=== PATIENT | female | born 1955 | race African-American/Black ===

== ENCOUNTER 2022-03-08 09:20 | Inpatient (IN) | payer MEDICARE, OTHER ==
[2022-03-08 10:36] LABS: INR-International Normal Ratio 1.4; Prothrombin Time 17.1 sec (12.0-14.7)
[2022-03-08 10:39] LABS: #Lymphocytes 1.7 thou/uL (1.20-3.40); #Monocytes 0.8 thou/uL (0.11-0.59); #Neutrophils 9.5 thou/uL (1.40-6.50); %Basophils 0.1 % (0.0-1.0); %Eosinophils 0.3 % (0.0-10.0); %Lymphocytes 13.8 % (21.0-51.0); %Monocytes 6.5 % (0.0-10.0); %Neutrophils 79.3 % (42.0-75.0); Band 15 % (5-11); Eosinophils 1 % (0-10); Hemoglobin 13.6 g/dL (12.0-16.0); Lymphocytes 13 % (21-51); MDiff Complete? YES; Mean Corpuscular HGB CONC 30.1 g/dL (32.0-36.0); Mean Corpuscular Hemoglobin 25.8 pg (27.0-31.0); Mean Corpuscular Volume 85.7 fL (78.0-98.0); Mean Platelet Volume 10.7 fL (7.4-10.4); Monocytes 8 % (0-10); Neutrophil 63 % (42-75); Platelet Count 111 thou/uL (130-400); Platelet Morphology Comment Appears Decreased; RBC Distribution Width 15.7 % (11.5-14.5); RBC Morphology Normal; Red Blood Cell (RBC) Count 5.27 mill/uL (4.20-5.40)
[2022-03-08 10:39] LABS: ALT (SGPT) 635 U/L (8-55); AST (SGOT) 112 U/L (5-34); Albumin 3.3 g/dL (3.4-4.8); Alkaline Phosphatase 240 U/L (40-110); Anion Gap 20 mmol/L (10-20); BUN (Urea Nitrogen) 26 mg/dL (9.8-20.1); Bilirubin, Total 3.3 mg/dL (0.2-1.2); Calc. Creatinine Clearance 0 mL/min (70-130); Calcium 8.7 mg/dL (7.8-10.44); Carbon Dioxide 21 mmol/L (23-31); Chloride 95 mmol/L (98-107); Estimated GFR 57; Globulin 4.4 g/dL (2.4-3.5); Glucose 164 mg/dL (80-115); Potassium 4.3 mmol/L (3.5-5.1); Protein, Total 7.7 g/dL (5.8-8.1); Sodium 132 mmol/L (136-145)
[2022-03-08] MEDS ORDERED: cefTRIAXone\\ROCEPHIN 2 GM VIAL ONE (12:38)
[2022-03-08 13:46] LABS: Lactic Acid 2.5 mmol/L (0.5-2.2)
[2022-03-08 14:13] VITALS: BMI 37.9
[2022-03-08] MEDS ORDERED: ISOVUE-370 76%-LOCM 1 ML ONE ×2 (14:18→14:19)
[2022-03-08] MEDS ORDERED: Piperacillin/Tazobactam 3.375 GM in Sodium Chloride 0.9% 100 ML IVPB SCH ×2 (15:00→15:15)
[2022-03-08] MEDS ORDERED: Vancomycin 1 GM in Premix Bag 1 BAG IVPB SCH (15:00)
[2022-03-08] MEDS ORDERED: Acetaminophen 650 MG Suppository PR PRN (15:01)
[2022-03-08] MEDS ORDERED: Ondansetron PF 4 MG/2 ML Vial IVP PRN (15:01)
[2022-03-08] MEDS ORDERED: Ondansetron ODT 4 MG TAB PO PRN (15:01)
[2022-03-08] MEDS ORDERED: VANCOMYCIN 2 GRAM/500 ML BAG 2 GM in Premix Bag 1 BAG IVPB SCH (15:30)
[2022-03-08] MEDS ORDERED: Heparin 25,000 units/D5W 500 ML IVPB SCH (15:30)
[2022-03-08] MEDS: Sodium Chloride 0.9% 1,000 ML IV SCH (15:31)
[2022-03-08] MEDS ORDERED: Heparin 10,000 UNITS/ 10 ML VIAL SLOW IVP SCH (16:15)
[2022-03-08] MEDS ORDERED: Heparin 25,000 units/D5W 500 ML IV SCH (16:15)
[2022-03-08] MEDS ORDERED: Enoxaparin Sodium 120 MG/0.8 ML SYRINGE SC SCH (17:30)
[2022-03-08 18:21] LABS: Platelet Count 98 thou/uL (130-400)
[2022-03-08 19:35] LABS: Bilirubin Negative (Negative); Blood, Urine 3+ (Negative); Clarity Clear (Clear); Glucose, Urine (Dipstick) Normal (Negative); Ketone, Urine Trace mg/dL (Negative); Leukocyte Negative Leu/uL (Negative); Nitrite Negative (Negative); Protein, Urine (Dipstick) 30 mg/dL (Neg-Trace); Squamous Epithelial 0-3 HPF (0-3); pH, Urine 5.5 (5.0-9.0)
[2022-03-08 19:37] LABS: RBC/HPF 21-50 HPF (0-3)
[2022-03-08 19:38] LABS: Bacteria/HPF 1+ HPF (None Seen)
[2022-03-08 19:39] LABS: Urine Culture Reflex Yes Yes
[2022-03-08] MEDS: Piperacillin/Tazobactam 3.375 GM in Sodium Chloride 0.9% 100 ML IVPB SCH (20:07)
[2022-03-08 23:07] LABS: Troponin I 0.037 ng/mL (< 0.028)
[2022-03-08 23:22] LABS: Hep B Surf Ag Non-Reactive S/CO (NonReactive)
[2022-03-08 23:23] LABS: Hep A IgM AB Non-Reactive (NonReactive); Hep A IgM S/CO 0.15 S/CO (0-0.79); Hep C IgG Ab Non-Reactive (NonReactive); Hep C Index 0.19 S/CO (0-0.79)
[2022-03-08 23:24] LABS: HBCM Index 0.13 S/CO (0-0.79); Hepatitis B Core IgM Abs Non-Reactive (NonReactive)
[2022-03-09] MEDS: Sodium Chloride 0.9% 1,000 ML IV SCH ×3 (00:24→15:27)
[2022-03-09] MEDS: Piperacillin/Tazobactam 3.375 GM in Sodium Chloride 0.9% 100 ML IVPB SCH ×3 (04:36→22:10)
[2022-03-09 09:41] LABS: #Eosinphils 0.1 thou/uL (0.0-0.7); #Lymphocytes 1.5 thou/uL (1.20-3.40); #Monocytes 0.8 thou/uL (0.11-0.59); #Neutrophils 11.1 thou/uL (1.40-6.50); %Basophils 0.2 % (0.0-1.0); %Eosinophils 0.4 % (0.0-10.0); %Lymphocytes 11.4 % (21.0-51.0); %Monocytes 5.7 % (0.0-10.0); %Neutrophils 82.4 % (42.0-75.0); Hemoglobin 13.7 g/dL (12.0-16.0); Mean Corpuscular HGB CONC 29.6 g/dL (32.0-36.0); Mean Corpuscular Hemoglobin 26.4 pg (27.0-31.0); Mean Corpuscular Volume 89.3 fL (78.0-98.0); Mean Platelet Volume 10.6 fL (7.4-10.4); Platelet Count 127 thou/uL (130-400); RBC Distribution Width 16.1 % (11.5-14.5); Red Blood Cell (RBC) Count 5.17 mill/uL (4.20-5.40); White Blood Cell (WBC) Count 13.5 thou/uL (4.8-10.8)
[2022-03-09 10:01] LABS: ALT (SGPT) 374 U/L (8-55); AST (SGOT) 59 U/L (5-34); Alkaline Phosphatase 239 U/L (40-110); Anion Gap 17 mmol/L (10-20); BUN (Urea Nitrogen) 13 mg/dL (9.8-20.1); Bilirubin, Total 3.1 mg/dL (0.2-1.2); Calc. Creatinine Clearance 123 mL/min (70-130); Calcium 8.4 mg/dL (7.8-10.44); Carbon Dioxide 20 mmol/L (23-31); Chloride 102 mmol/L (98-107); Estimated GFR 85; Globulin 4.3 g/dL (2.4-3.5); Glucose 139 mg/dL (80-115); Potassium 3.7 mmol/L (3.5-5.1); Protein, Total 7.3 g/dL (5.8-8.1); Sodium 135 mmol/L (136-145)
[2022-03-09] MEDS: Enoxaparin Sodium 120 MG/0.8 ML SYRINGE SC SCH ×2 (10:04→22:10)
[2022-03-09 10:06] LABS: Acetaminophen Less than 10.0 mcg/mL (10.0-30.0)
[2022-03-09 10:07] LABS: MDiff Complete? YES; Platelet Morphology Comment Appears Decreased; Polychromasia SLIGHT = 2-3 cells (100X) (0-2/hpf)
[2022-03-09 10:11] LABS: Amphetamine Not Detected (NotDetected); Barbiturates Screen Not Detected (NotDetected); Benzodiazepine Screen Not Detected (NotDetected); Cocaine Metabolite Screen Not Detected (NotDetected); Methadone Not Detected (NotDetected); Methamphetamine Not Detected (NotDetected); Opiate Screen Not Detected (NotDetected); Oxycodone Screen Not Detected (NotDetected); Phencyclidine (PCP) Not Detected (NotDetected); THC/Cannabinoid Screen Not Detected (NotDetected); Tricyclic Screen Not Detected (NotDetected)
[2022-03-09] MEDS: Vancomycin 1.5 GRAM/300 ML BAG 1.5 GM in Premix Bag 1 BAG IVPB SCH (13:52)
[2022-03-09] MEDS ORDERED: VANCOMYCIN 2 GRAM/500 ML BAG 2 GM in Premix Bag 1 BAG IVPB SCH (16:00)
[2022-03-10] MEDS: Vancomycin 1.5 GRAM/300 ML BAG 1.5 GM in Premix Bag 1 BAG IVPB SCH ×2 (01:47→13:09)
[2022-03-10] MEDS: Piperacillin/Tazobactam 3.375 GM in Sodium Chloride 0.9% 100 ML IVPB SCH ×3 (04:55→22:50)
[2022-03-10 06:26] LABS: #Eosinphils 0.1 thou/uL (0.0-0.7); #Lymphocytes 1.4 thou/uL (1.20-3.40); #Neutrophils 8.8 thou/uL (1.40-6.50); %Eosinophils 0.8 % (0.0-10.0); %Lymphocytes 12.2 % (21.0-51.0); %Monocytes 8.5 % (0.0-10.0); %Neutrophils 78.5 % (42.0-75.0); Hemoglobin 12.4 g/dL (12.0-16.0); Mean Corpuscular HGB CONC 31.3 g/dL (32.0-36.0); Mean Corpuscular Hemoglobin 27.3 pg (27.0-31.0); Mean Corpuscular Volume 87.1 fL (78.0-98.0); Mean Platelet Volume 9.8 fL (7.4-10.4); Platelet Count 132 thou/uL (130-400); RBC Distribution Width 15.5 % (11.5-14.5); Red Blood Cell (RBC) Count 4.56 mill/uL (4.20-5.40); White Blood Cell (WBC) Count 11.2 thou/uL (4.8-10.8)
[2022-03-10 06:58] LABS: ALT (SGPT) 229 U/L (8-55); AST (SGOT) 43 U/L (5-34); Albumin 2.6 g/dL (3.4-4.8); Alkaline Phosphatase 228 U/L (40-110); Anion Gap 15 mmol/L (10-20); BUN (Urea Nitrogen) 9 mg/dL (9.8-20.1); Bilirubin, Total 2.7 mg/dL (0.2-1.2); Calc. Creatinine Clearance 137 mL/min (70-130); Calcium 8.1 mg/dL (7.8-10.44); Carbon Dioxide 20 mmol/L (23-31); Chloride 104 mmol/L (98-107); Estimated GFR 95; Globulin 3.8 g/dL (2.4-3.5); Glucose 96 mg/dL (80-115); Potassium 3.7 mmol/L (3.5-5.1); Protein, Total 6.4 g/dL (5.8-8.1); Sodium 135 mmol/L (136-145)
[2022-03-10] MEDS: Enoxaparin Sodium 120 MG/0.8 ML SYRINGE SC SCH ×2 (09:27→22:50)
[2022-03-10 12:41] LABS: Vancomycin, Trough 15.4 ug/mL
[2022-03-11] MEDS: Vancomycin 1.5 GRAM/300 ML BAG 1.5 GM in Premix Bag 1 BAG IVPB SCH ×2 (01:45→15:28)
[2022-03-11] MEDS: Piperacillin/Tazobactam 3.375 GM in Sodium Chloride 0.9% 100 ML IVPB SCH ×3 (05:33→22:15)
[2022-03-11 07:23] LABS: #Eosinphils 0.2 thou/uL (0.0-0.7); #Lymphocytes 1.2 thou/uL (1.20-3.40); #Monocytes 0.5 thou/uL (0.11-0.59); #Neutrophils 6.7 thou/uL (1.40-6.50); %Basophils 0.2 % (0.0-1.0); %Monocytes 6.3 % (0.0-10.0); %Neutrophils 77.5 % (42.0-75.0); Hemoglobin 11.8 g/dL (12.0-16.0); Mean Corpuscular HGB CONC 31.3 g/dL (32.0-36.0); Mean Corpuscular Hemoglobin 27.3 pg (27.0-31.0); Mean Corpuscular Volume 87.4 fL (78.0-98.0); Mean Platelet Volume 9.3 fL (7.4-10.4); Platelet Count 160 thou/uL (130-400); RBC Distribution Width 15.2 % (11.5-14.5); White Blood Cell (WBC) Count 8.6 thou/uL (4.8-10.8)
[2022-03-11 07:30] LABS: ALT (SGPT) 146 U/L (8-55); AST (SGOT) 34 U/L (5-34); Albumin 2.3 g/dL (3.4-4.8); Alkaline Phosphatase 213 U/L (40-110); Anion Gap 12 mmol/L (10-20); BUN (Urea Nitrogen) 7 mg/dL (9.8-20.1); Bilirubin, Total 1.9 mg/dL (0.2-1.2); Calc. Creatinine Clearance 141 mL/min (70-130); Calcium 7.9 mg/dL (7.8-10.44); Carbon Dioxide 25 mmol/L (23-31); Chloride 102 mmol/L (98-107); Estimated GFR 95; Globulin 4.1 g/dL (2.4-3.5); Glucose 94 mg/dL (80-115); Potassium 3.9 mmol/L (3.5-5.1); Protein, Total 6.4 g/dL (5.8-8.1); Sodium 135 mmol/L (136-145)
[2022-03-11] MEDS: Enoxaparin Sodium 120 MG/0.8 ML SYRINGE SC SCH ×2 (08:16→22:15)
[2022-03-11] MEDS: Acetaminophen 325 MG TAB PO PRN (10:24)
[2022-03-12 00:53] LABS: Vancomycin, Trough 16.4 ug/mL
[2022-03-12] MEDS: Vancomycin 1.5 GRAM/300 ML BAG 1.5 GM in Premix Bag 1 BAG IVPB SCH (01:45)
[2022-03-12] MEDS: Piperacillin/Tazobactam 3.375 GM in Sodium Chloride 0.9% 100 ML IVPB SCH ×3 (04:50→20:41)
[2022-03-12] MEDS: Apixaban 5 MG TAB PO SCH ×2 (07:57→20:41)
[2022-03-12] MEDS: Acetaminophen 325 MG TAB PO PRN (10:35)
[2022-03-12 11:16] LABS: ALT (SGPT) 114 U/L (8-55); AST (SGOT) 43 U/L (5-34); Albumin 2.5 g/dL (3.4-4.8); Alkaline Phosphatase 251 U/L (40-110); Anion Gap 14 mmol/L (10-20); BUN (Urea Nitrogen) 8 mg/dL (9.8-20.1); Bilirubin, Total 1.9 mg/dL (0.2-1.2); Calc. Creatinine Clearance 135 mL/min (70-130); Calcium 8.2 mg/dL (7.8-10.44); Carbon Dioxide 23 mmol/L (23-31); Chloride 104 mmol/L (98-107); Estimated GFR 94; Globulin 4.2 g/dL (2.4-3.5); Glucose 149 mg/dL (80-115); Potassium 3.6 mmol/L (3.5-5.1); Protein, Total 6.7 g/dL (5.8-8.1); Sodium 137 mmol/L (136-145)
[2022-03-12 11:17] LABS: #Eosinphils 0.1 thou/uL (0.0-0.7); #Lymphocytes 0.8 thou/uL (1.20-3.40); #Monocytes 0.5 thou/uL (0.11-0.59); #Neutrophils 7.2 thou/uL (1.40-6.50); %Basophils 0.1 % (0.0-1.0); %Eosinophils 1.7 % (0.0-10.0); %Lymphocytes 9.3 % (21.0-51.0); %Monocytes 5.4 % (0.0-10.0); %Neutrophils 83.5 % (42.0-75.0); Hemoglobin 12.6 g/dL (12.0-16.0); Mean Corpuscular Hemoglobin 27.2 pg (27.0-31.0); Mean Corpuscular Volume 87.7 fL (78.0-98.0); Platelet Count 191 thou/uL (130-400); RBC Distribution Width 15.5 % (11.5-14.5); Red Blood Cell (RBC) Count 4.65 mill/uL (4.20-5.40); White Blood Cell (WBC) Count 8.6 thou/uL (4.8-10.8)
[2022-03-12] MEDS ORDERED: NIFEdipine XL 60 MG TAB PO SCH (12:53)
[2022-03-13] MEDS: Piperacillin/Tazobactam 3.375 GM in Sodium Chloride 0.9% 100 ML IVPB SCH ×3 (04:50→20:34)
[2022-03-13 06:34] LABS: #Eosinphils 0.1 thou/uL (0.0-0.7); #Lymphocytes 0.9 thou/uL (1.20-3.40); #Monocytes 0.5 thou/uL (0.11-0.59); #Neutrophils 6.4 thou/uL (1.40-6.50); %Basophils 0.3 % (0.0-1.0); %Eosinophils 1.4 % (0.0-10.0); %Lymphocytes 11.8 % (21.0-51.0); %Monocytes 5.9 % (0.0-10.0); %Neutrophils 80.6 % (42.0-75.0); Hemoglobin 12.1 g/dL (12.0-16.0); Mean Corpuscular Hemoglobin 27.3 pg (27.0-31.0); Mean Platelet Volume 8.6 fL (7.4-10.4); Platelet Count 201 thou/uL (130-400); RBC Distribution Width 15.3 % (11.5-14.5); Red Blood Cell (RBC) Count 4.45 mill/uL (4.20-5.40)
[2022-03-13 06:50] LABS: ALT (SGPT) 103 U/L (8-55); AST (SGOT) 56 U/L (5-34); Albumin 2.5 g/dL (3.4-4.8); Alkaline Phosphatase 235 U/L (40-110); Anion Gap 14 mmol/L (10-20); BUN (Urea Nitrogen) 7 mg/dL (9.8-20.1); Bilirubin, Total 1.3 mg/dL (0.2-1.2); Calc. Creatinine Clearance 146 mL/min (70-130); Calcium 8.2 mg/dL (7.8-10.44); Carbon Dioxide 23 mmol/L (23-31); Chloride 104 mmol/L (98-107); Estimated GFR 96; Glucose 109 mg/dL (80-115); Potassium 3.8 mmol/L (3.5-5.1); Protein, Total 6.5 g/dL (5.8-8.1); Sodium 137 mmol/L (136-145)
[2022-03-13] MEDS: Apixaban 5 MG TAB PO SCH ×2 (08:28→20:34)
[2022-03-13] MEDS: NIFEdipine XL 60 MG TAB PO SCH (08:28)
[2022-03-13] MEDS: Acetaminophen 325 MG TAB PO PRN (10:56)
[2022-03-13 19:09] LABS: #Eosinphils 0.1 thou/uL (0.0-0.7); #Lymphocytes 0.9 thou/uL (1.20-3.40); #Monocytes 0.3 thou/uL (0.11-0.59); #Neutrophils 6.7 thou/uL (1.40-6.50); %Eosinophils 1.3 % (0.0-10.0); %Lymphocytes 11.5 % (21.0-51.0); %Monocytes 4.1 % (0.0-10.0); Hemoglobin 12.1 g/dL (12.0-16.0); Mean Corpuscular HGB CONC 30.6 g/dL (32.0-36.0); Mean Corpuscular Hemoglobin 26.7 pg (27.0-31.0); Mean Corpuscular Volume 87.5 fL (78.0-98.0); Mean Platelet Volume 8.3 fL (7.4-10.4); Platelet Count 215 thou/uL (130-400); RBC Distribution Width 15.5 % (11.5-14.5); Red Blood Cell (RBC) Count 4.53 mill/uL (4.20-5.40); White Blood Cell (WBC) Count 8.1 thou/uL (4.8-10.8)
[2022-03-14] MEDS: Piperacillin/Tazobactam 3.375 GM in Sodium Chloride 0.9% 100 ML IVPB SCH ×3 (04:04→20:01)
[2022-03-14 06:58] LABS: #Eosinphils 0.1 thou/uL (0.0-0.7); #Lymphocytes 0.7 thou/uL (1.20-3.40); #Monocytes 0.4 thou/uL (0.11-0.59); #Neutrophils 6.2 thou/uL (1.40-6.50); %Basophils 0.2 % (0.0-1.0); %Eosinophils 1.1 % (0.0-10.0); %Lymphocytes 9.6 % (21.0-51.0); %Monocytes 5.8 % (0.0-10.0); %Neutrophils 83.3 % (42.0-75.0); Hemoglobin 12.1 g/dL (12.0-16.0); Mean Corpuscular HGB CONC 31.2 g/dL (32.0-36.0); Mean Corpuscular Hemoglobin 26.8 pg (27.0-31.0); Mean Platelet Volume 8.3 fL (7.4-10.4); Platelet Count 224 thou/uL (130-400); RBC Distribution Width 15.1 % (11.5-14.5); Red Blood Cell (RBC) Count 4.52 mill/uL (4.20-5.40); White Blood Cell (WBC) Count 7.4 thou/uL (4.8-10.8)
[2022-03-14 07:17] LABS: Anion Gap 12 mmol/L (10-20); BUN (Urea Nitrogen) 6 mg/dL (9.8-20.1); Calc. Creatinine Clearance 170 mL/min (70-130); Calcium 8.3 mg/dL (7.8-10.44); Carbon Dioxide 24 mmol/L (23-31); Chloride 102 mmol/L (98-107); Estimated GFR 100; Glucose 118 mg/dL (80-115); Potassium 3.6 mmol/L (3.5-5.1); Sodium 134 mmol/L (136-145)
[2022-03-14] MEDS: Apixaban 5 MG TAB PO SCH ×2 (09:12→20:01)
[2022-03-14] MEDS: NIFEdipine XL 60 MG TAB PO SCH (09:12)
[2022-03-14] MEDS: Acetaminophen 325 MG TAB PO PRN ×2 (09:14→20:00)
[2022-03-15] MEDS: Piperacillin/Tazobactam 3.375 GM in Sodium Chloride 0.9% 100 ML IVPB SCH ×3 (03:31→20:03)
[2022-03-15 06:21] LABS: #Eosinphils 0.1 thou/uL (0.0-0.7); #Lymphocytes 0.7 thou/uL (1.20-3.40); #Monocytes 0.5 thou/uL (0.11-0.59); %Basophils 0.1 % (0.0-1.0); %Lymphocytes 10.2 % (21.0-51.0); %Monocytes 6.4 % (0.0-10.0); %Neutrophils 82.3 % (42.0-75.0); Hemoglobin 12.6 g/dL (12.0-16.0); Mean Corpuscular HGB CONC 30.8 g/dL (32.0-36.0); Mean Corpuscular Hemoglobin 26.4 pg (27.0-31.0); Mean Corpuscular Volume 85.6 fL (78.0-98.0); Platelet Count 251 thou/uL (130-400); RBC Distribution Width 15.2 % (11.5-14.5); Red Blood Cell (RBC) Count 4.79 mill/uL (4.20-5.40); White Blood Cell (WBC) Count 7.3 thou/uL (4.8-10.8)
[2022-03-15 06:35] LABS: Anion Gap 12 mmol/L (10-20); BUN (Urea Nitrogen) 7 mg/dL (9.8-20.1); Calc. Creatinine Clearance 161 mL/min (70-130); Calcium 8.3 mg/dL (7.8-10.44); Carbon Dioxide 25 mmol/L (23-31); Chloride 101 mmol/L (98-107); Estimated GFR 99; Glucose 116 mg/dL (80-115); Potassium 3.5 mmol/L (3.5-5.1); Sodium 134 mmol/L (136-145)
[2022-03-15] MEDS: NIFEdipine XL 60 MG TAB PO SCH (07:59)
[2022-03-15 08:17] LABS: Hemoglobin 12.1 g/dL (12.0-16.0); Platelet Count 249 thou/uL (130-400)
[2022-03-15] MEDS: Heparin 10,000 UNITS/ 10 ML VIAL SLOW IVP SCH (08:55)
[2022-03-15] MEDS: Heparin 25,000 units/D5W 500 ML IVPB SCH (08:56)
[2022-03-15] MEDS ORDERED: Magnevist 469MG/ML 20 ML VIAL ONE (09:21)
[2022-03-15] MEDS: Acetaminophen 325 MG TAB PO PRN (10:56)
[2022-03-15] MEDS ORDERED: Morphine 2 MG/ML VIAL SLOW IVP PRN (14:22)
[2022-03-15 16:18] LABS: PTT 129.1 sec (22.9-36.1)
[2022-03-16] MEDS: Heparin 25,000 units/D5W 500 ML IVPB SCH (01:18)
[2022-03-16] MEDS: Acetaminophen 325 MG TAB PO PRN ×2 (03:33→12:34)
[2022-03-16] MEDS: Piperacillin/Tazobactam 3.375 GM in Sodium Chloride 0.9% 100 ML IVPB SCH ×3 (03:33→20:32)
[2022-03-16 05:44] LABS: #Eosinphils 0.1 thou/uL (0.0-0.7); #Monocytes 0.5 thou/uL (0.11-0.59); #Neutrophils 6.7 thou/uL (1.40-6.50); %Basophils 0.1 % (0.0-1.0); %Eosinophils 1.4 % (0.0-10.0); %Lymphocytes 12.5 % (21.0-51.0); %Monocytes 5.5 % (0.0-10.0); %Neutrophils 80.4 % (42.0-75.0); Hemoglobin 10.5 g/dL (12.0-16.0); Mean Corpuscular HGB CONC 31.4 g/dL (32.0-36.0); Mean Corpuscular Hemoglobin 26.7 pg (27.0-31.0); Mean Corpuscular Volume 85.1 fL (78.0-98.0); Mean Platelet Volume 7.9 fL (7.4-10.4); Platelet Count 263 thou/uL (130-400); RBC Distribution Width 14.8 % (11.5-14.5); Red Blood Cell (RBC) Count 3.95 mill/uL (4.20-5.40); White Blood Cell (WBC) Count 8.3 thou/uL (4.8-10.8)
[2022-03-16 05:55] LABS: PTT 141.9 sec (22.9-36.1)
[2022-03-16 06:02] LABS: Anion Gap 12 mmol/L (10-20); BUN (Urea Nitrogen) 5 mg/dL (9.8-20.1); Calc. Creatinine Clearance 170 mL/min (70-130); Calcium 8.1 mg/dL (7.8-10.44); Carbon Dioxide 26 mmol/L (23-31); Chloride 99 mmol/L (98-107); Estimated GFR 100; Glucose 118 mg/dL (80-115); Potassium 3.5 mmol/L (3.5-5.1); Sodium 133 mmol/L (136-145)
[2022-03-16] MEDS: NIFEdipine XL 60 MG TAB PO SCH (08:00)
[2022-03-16] MEDS: Heparin 10,000 UNITS/ 10 ML VIAL SLOW IVP SCH (09:05)
[2022-03-16 15:03] LABS: PTT 142.6 sec (22.9-36.1)
[2022-03-17] MEDS: Heparin 25,000 units/D5W 500 ML IVPB SCH ×2 (00:22→20:07)
[2022-03-17 01:04] LABS: PTT 115.1 sec (22.9-36.1)
[2022-03-17] MEDS: Piperacillin/Tazobactam 3.375 GM in Sodium Chloride 0.9% 100 ML IVPB SCH ×3 (03:43→20:06)
[2022-03-17] MEDS: Acetaminophen 325 MG TAB PO PRN (03:47)
[2022-03-17 07:56] LABS: #Eosinphils 0.1 thou/uL (0.0-0.7); #Monocytes 0.6 thou/uL (0.11-0.59); #Neutrophils 6.4 thou/uL (1.40-6.50); %Basophils 0.3 % (0.0-1.0); %Eosinophils 0.8 % (0.0-10.0); %Lymphocytes 12.8 % (21.0-51.0); %Monocytes 7.1 % (0.0-10.0); %Neutrophils 79.1 % (42.0-75.0); Hemoglobin 9.3 g/dL (12.0-16.0); Mean Corpuscular HGB CONC 31.9 g/dL (32.0-36.0); Mean Corpuscular Hemoglobin 26.9 pg (27.0-31.0); Mean Corpuscular Volume 84.3 fL (78.0-98.0); Mean Platelet Volume 7.3 fL (7.4-10.4); Platelet Count 250 thou/uL (130-400); RBC Distribution Width 14.8 % (11.5-14.5); Red Blood Cell (RBC) Count 3.46 mill/uL (4.20-5.40); White Blood Cell (WBC) Count 8.1 thou/uL (4.8-10.8)
[2022-03-17 08:12] LABS: Anion Gap 10 mmol/L (10-20); BUN (Urea Nitrogen) 6 mg/dL (9.8-20.1); Calc. Creatinine Clearance 164 mL/min (70-130); Calcium 8.1 mg/dL (7.8-10.44); Carbon Dioxide 27 mmol/L (23-31); Chloride 102 mmol/L (98-107); Estimated GFR 99; Glucose 115 mg/dL (80-115); Potassium 3.3 mmol/L (3.5-5.1); Sodium 136 mmol/L (136-145)
[2022-03-17] MEDS: NIFEdipine XL 60 MG TAB PO SCH (09:01)
[2022-03-18] MEDS: Acetaminophen 325 MG TAB PO PRN (01:52)
[2022-03-18 02:04] VITALS: BP 156/77; TEMP 98.6
== END 2022-03-18 01:55 | disposition short-term general hospital (02) | DRG 871 ==
LOC: ERS 09:20 → T4-A 12:32
PROVIDERS: ADMIT Internal Medicine; ATTEND Internal Medicine
DX: A41.9 Sepsis, unspecified organism (principal); I26.99 Other pulmonary embolism without acute cor pulmonale; L03.116 Cellulitis of left lower limb; L03.115 Cellulitis of right lower limb; I82.431 Acute embolism and thrombosis of right popliteal vein; I82.492 Acute embolism and thrombosis of other specified deep vein of left lower extremity; I10 Essential (primary) hypertension; I27.20 Pulmonary hypertension, unspecified; E66.9 Obesity, unspecified; N95.0 Postmenopausal bleeding; Z20.822 Contact with and (suspected) exposure to COVID-19; Z68.37 Body mass index [BMI] 37.0-37.9, adult
CPT/HCPCS: 36415; 71045; 71275; 72197; 74177; 76705; 76856; 80048; 80053; 80074; 80143; 80202; 80306; 81001; 83605; 83690; 83880; 84484; 85025; 85610; 85730; 87040; 87086; 93005; 93306; 93970; 94760; 96365; 97139; 80307; A9579; J0696; J1644; J1650; J2270; J2543; J3370; J3490; J7050; Q9966; U0003; U0005